=== PATIENT | female | born 1990 | race Caucasian/White ===

== ENCOUNTER 2017-10-17 05:30 | Inpatient (IN) | payer BC, MEDICAID ==
[~2017-10-17] VITALS: Ht 162.6 cm; Wt 68.9 kg
[2017-10-17] MEDS ORDERED: PENICILLIN G POTASSIUM 5 MMU in DEXT 5% WATER 100 ML IV SCH (06:30)
[2017-10-17] MEDS ORDERED: NALOXONE HCL 0.4 MG/ML 1ML VIAL IM PRN (06:30)
[2017-10-17] MEDS ORDERED: LIDOCAINE HCL 1% 20ML VIAL (Pyxis) INJ INFIL SCH (06:30)
[2017-10-17] MEDS ORDERED: METHYLERGONOVINE MALEATE 0.2 MG/ML IM PRN (06:30)
[2017-10-17] MEDS ORDERED: MISOPROSTOL 100MCG TABLET VG SCH (06:30)
[2017-10-17] MEDS ORDERED: DEXT 5%/LR + PITOCIN 20UNITS/L 1,000 ML IV SCH ×2 (06:30→12:43)
[2017-10-17] MEDS ORDERED: CARBOPROST TROMETHAMINE 250 MCG/ML AMPUL IM PRN (06:30)
[2017-10-17] MEDS ORDERED: BUTORPHANOL TARTRATE 2 MG/ML VIAL IV PRN (06:30)
[2017-10-17] MEDS: LACTATED RINGERS 1,000 ML IV SCH ×3 (07:13→08:40)
[2017-10-17 07:51] LABS: CLARITY URINE TURBID (CLEAR); COLOR URINE RED (YELLOW); KETONES URINE NEGATIVE (NEGATIVE); LEUKOCYTE ESTERASE URINE 3+ (NEGATIVE); NITRITE URINE NEGATIVE (NEGATIVE); OCCULT BLOOD URINE 3+ (NEGATIVE); PROTEIN URINE 2+ (NEGATIVE); SPECIFIC GRAVITY URINE 1.018 (1.005-1.030)
[2017-10-17 07:52] LABS: BASOPHILS % 0.1 % (0.0-2.0); EOSINOPHILS % 0.3 % (0.0-5.0); HEMATOCRIT. 36.1 % (36.0-48.0); HEMOGLOBIN. 12.6 g/dL (12.0-16.0); LYMPHOCYTES % 15.6 % (20.0-50.0); MEAN CORPUSCULAR HEMOGLOBIN 34.4 pg (28.0-32.0); MEAN PLATELET VOLUME 7.9 fl (7.4-10.4); MONOCYTES % 5.2 % (2.0-8.0); NEUTROPHILS % 78.8 % (40.0-76.0); PLATELET 142 x1000/uL (130-400); RED BLOOD CELL COUNT 3.68 mill/uL (4.2-5.4)
[2017-10-17 07:53] LABS: CHLORIDE 104 mEq/L (98-107)
[2017-10-17 07:58] LABS: PARTIAL THROMBOPLASTIN TIME 27.1 sec (23.4-31.0); PROTHROMBIN TIME 9.8 sec (9.1-11.1)
[2017-10-17] MEDS ORDERED: FENTANYL CITRATE/PF 50MCG/ML 2ML VIAL ONE (08:11)
[2017-10-17] MEDS ORDERED: BUPIVACAINE HCL/PF 0.25% (2.5MG/ML) 10ML ONE (08:11)
[2017-10-17] MEDS ORDERED: BUPIVACAINE HCL/NS/PF EPIDURAL 100 ML EP ONE (08:11)
[2017-10-17 08:29] LABS: *AMPHETAMINES SCREEN URINE NEGATIVE (NEGATIVE); *BARBITURATES SCREEN URINE NEGATIVE (NEGATIVE); *BENZODIAZEPINES SCREEN URINE NEGATIVE (NEGATIVE); *COCAINE SCREEN URINE NEGATIVE (NEGATIVE)
[2017-10-17 08:30] LABS: CANNABINOID URINE SCREEN NEGATIVE (NEGATIVE); METHADONE URINE SCREEN NEGATIVE (NEGATIVE); OPIATES URINE SCREEN NEGATIVE (NEGATIVE); PHENCYCLIDINE URINE SCREEN NEGATIVE (NEGATIVE)
[2017-10-17 10:09] LABS: HEPATITIS B SURFACE ANTIGEN NEGATIVE
[2017-10-17 10:37] LABS: RUBELLA IGG > 500.0 IU/mL (4.99-10)
[2017-10-17] MEDS ORDERED: PENICILLIN G POTASSIUM 2.5 MMU in DEXTROSE 5% WATER 50 ML IV SCH (11:00)
[2017-10-17] MEDS ORDERED: TETANUS, DIPHTHERIA, PERTUSSIS VAC/PF 0.5ML (>7YR OLD) IM ONE (12:45)
[2017-10-17] MEDS ORDERED: GLYCERIN/WITCH HAZEL LEAF MEDICATED PAD TOP PRN (12:45)
[2017-10-17] MEDS ORDERED: IBUPROFEN 400MG TABLET PO PRN (12:45)
[2017-10-17] MEDS ORDERED: HEMORRHOIDAL SUPP PR PRN (12:45)
[2017-10-17] MEDS ORDERED: ACETAMINOPHEN WITH CODEINE 300/30MG TABLET PO PRN (12:45)
[2017-10-17] MEDS ORDERED: LANOLIN OINT 0.25 GM TUBE TOP PRN (12:45)
[2017-10-17] MEDS ORDERED: DIPHENHYDRAMINE 25MG CAPSULE PO PRN (12:45)
[2017-10-17] MEDS ORDERED: BISACODYL 10MG SUPP PR PRN (12:45)
[2017-10-17] MEDS ORDERED: MISOPROSTOL 200MCG TABLET RC NR (15:00)
[2017-10-17 17:00] VITALS: BP 108/56
[2017-10-17] MEDS: SIMETHICONE 80MG TABLET CHEW PO SCH ×2 (17:37→21:03)
[2017-10-17] MEDS: DOCUSATE SODIUM 100MG CAPSULE PO SCH (21:02)
[2017-10-17 22:00] VITALS: BP 99/59
[2017-10-18 06:00] VITALS: BP 103/57
[2017-10-18 07:32] VITALS: BP 90/50
[2017-10-18 07:49] LABS: BASOPHILS % 0.1 % (0.0-2.0); EOSINOPHILS % 0.3 % (0.0-5.0); HEMATOCRIT. 32.1 % (36.0-48.0); HEMOGLOBIN. 11.5 g/dL (12.0-16.0); LYMPHOCYTES % 16.3 % (20.0-50.0); MEAN CORPUSCULAR VOLUME 98.3 fL (81.0-99.0); MEAN PLATELET VOLUME 8.1 fl (7.4-10.4); MONOCYTES % 4.4 % (2.0-8.0); NEUTROPHILS % 78.9 % (40.0-76.0); PLATELET 121 x1000/uL (130-400); RED BLOOD CELL COUNT 3.27 mill/uL (4.2-5.4)
[2017-10-18] MEDS: PRENATAL VIT/FE FUMARATE/FA TABLET PO SCH (08:22)
[2017-10-18] MEDS: SIMETHICONE 80MG TABLET CHEW PO SCH ×4 (08:22→21:28)
[2017-10-18] MEDS: FERROUS SULFATE 325MG TABLET PO SCH ×2 (12:25→17:53)
[2017-10-18 16:02] VITALS: BP 99/51
[2017-10-18] MEDS: DOCUSATE SODIUM 100MG CAPSULE PO SCH (21:28)
[2017-10-18 22:00] VITALS: BP 107/68
[2017-10-19 05:40] VITALS: BP 91/51
[2017-10-19 07:30] VITALS: BP 96/52
[2017-10-19] MEDS: FERROUS SULFATE 325MG TABLET PO SCH (08:46)
[2017-10-19] MEDS: PRENATAL VIT/FE FUMARATE/FA TABLET PO SCH (08:46)
[2017-10-19] MEDS: SIMETHICONE 80MG TABLET CHEW PO SCH (08:46)
== END 2017-10-19 11:40 | disposition home or self-care (01) | DRG 560 ==
LOC: L&D 05:30 → OBSVTOIN 05:30 → 7EST PP/OB 17:29
PROVIDERS: ADMIT Specialist; ATTEND Specialist
PROC: 3E0R3BZ Introduction of Anesthetic Agent into Spinal Canal, Percutaneous Approach (ICD-10-PCS; 2017-10-17)
PROC: 00HU33Z Insertion of Infusion Device into Spinal Canal, Percutaneous Approach (ICD-10-PCS; 2017-10-17)
PROC: 10E0XZZ Delivery of Products of Conception, External Approach (ICD-10-PCS; principal; 2017-10-17 12:16)
DX: O99.02 Anemia complicating childbirth (principal); E44.1 Mild protein-calorie malnutrition; D64.9 Anemia, unspecified; Z37.0 Single live birth; Z3A.38 38 weeks gestation of pregnancy; O25.10 Malnutrition in pregnancy, unspecified trimester
CPT/HCPCS: 36415; 80053; 80305; 81003; 85025; 85610; 85730; 86592; 86703; 86762; 86850; 86900; 87340; J2210; J2540; J2590; J3010; J3490; J7060; J7120